=== PATIENT | male | born 1955 | race Caucasian/White ===

== ENCOUNTER 2018-04-04 09:19 | Day surgery (SDC) | payer BC ==
[2018-03-27 10:27] VITALS: BMI 26.4
[~2018-04-04 09:19] MED LIST: LACTATED RINGERS 1,000 ML IV SCH; LIDOCAINE 1% 20 ML VIAL (10MG/ML) FOR IV START INTRADERMA PRN; MIDAZOLAM 2 MG/2 ML VIAL IV PRN; MOXIFLOXACIN HCL 0.5% DROPS 3 ML BTL OP ONE; TETRACAINE 0.5% OPHTH (PF) DROPS 4 ML BTL OP ONE; TIMOLOL 0.5% OPHTH DROPS 5 ML BTL OP ONE
[2018-04-04] MEDS: CYCLOPENTOLATE 1% OPHTH SOLN 2 ML BTL OP ONE ×2 (11:12→11:22)
[2018-04-04] MEDS: PHENYLEPHRINE 2.5% OPHTH DRP 2ML OP NR ×3 (11:15→11:34)
[2018-04-04 11:28] VITALS: RESP 16; TEMP 97.6
[2018-04-04] MEDS ORDERED: fentaNYL (PF) 50 MCG/ML 2 ML AMP ONE (11:59)
[2018-04-04] MEDS ORDERED: MIDAZOLAM 2 MG/2 ML VIAL ONE (11:59)
[2018-04-04] MEDS ORDERED: EPINEPHrine (PF) 0.3 ML in BALANCED SALT IRRIG SOLN COMB2 500 ML IRRIGATION ONE (12:05)
[2018-04-04] MEDS ORDERED: HYALURONATE SODIUM INTRAOCULAR 1 EACH SYRINGE (12MG/ML) INTRAOCULA ONE (12:08)
[2018-04-04] MEDS ORDERED: BALANCED SALT IRRIG SOLN COMB2 15 ML IRRIG.SOLN IRRIGATION ONE (12:09)
[2018-04-04] MEDS ORDERED: LIDOCAINE 1% (PF) 10MG/ML VIAL MISCELLANE ONE (12:09)
--- NOTE | 2018-04-04 12:31 | P.OP ---
Date of Procedure: 04/04/18 Preoperative Diagnosis: NS & CS & PSC Postoperative Diagnosis: same Procedure(s) Performed: PIOL, OS Implants: PCB00 18.00 Anesthesia: MAC Surgeon: Raudel Carl Estimated Blood Loss (ml): 0 Pathology: none sent Condition: stable Disposition: same day Indications for Procedure: blurry vision Operative Findings: no complications
[2018-04-04 12:59] VITALS: BP 136/78; PULSE 54
--- NOTE | 2018-04-04 17:04 | OP ---
OPERATIVE REPORT DATE OF SURGERY: 04 April 2018 EVENT PLANNER:: PREOPERATIVE DIAGNOSES:: Nuclear sclerosis. Cortical sclerosis. Posterior subcapsular cataract. POSTOPERATIVE DIAGNOSES:: Nuclear sclerosis. Cortical sclerosis. Posterior subcapsular cataract. OPERATION:: Clear cornea phacoemulsification of cataract left OS eye. ESTIMATED BLOOD LOSS:: Zero. SPECIMEN TAKEN:: None. NARRATIVE:: After obtaining the appropriate consent, the patient was brought to the Operating Room where the patient was placed under cardiac monitoring and prepped and draped in the usual sterile manner. At the 5 o'clock position a 15 degree super sharp blade was used to create a paracentesis followed by instillation of 1% Xylocaine MPF 50:50 mix with BSS into the anterior chamber. This was followed by Amvisc to stabilize the anterior chamber. At the 3 o'clock position a self-sealing corneal flap incision was created using 2.8 mm matt keratome. A cystatome was used to initiate a continuous tear capsulorrhexis which was completed with the Utrata forceps. A Binkhorst cannula was used to hydrodissect the lens nucleus followed by hydrodelineation. Phacoemulsification of the lens was performed utilizing Phacochop in 3.54 Seconds at 9% power. The remaining cortical material was removed using the irrigation aspiration mode followed by additional 1% Xylocaine MPF into the anterior chamber followed by viscoelastic to stabilize the capsular bag. An MALGORZATA PZB 00 18.0 diopter posterior chamber lens was placed into the capsular bag without difficulty. The remaining viscoelastic material was removed from the anterior chamber with the irrigation/aspiration. Balanced salt solution was used to normalize the intraocular pressure. The incision was checked for watertight integrity. The patient then received two drops of 0.5% timolol followed by two drops Vigamox, was lightly patched and shielded in the usual manner. There were no complications from the procedure. The patient tolerated the procedure well and was returned to recovery in good condition. MMODL / IJN: [id number] /
== END 2018-04-04 13:36 | disposition home or self-care (01) ==
LOC: OR 09:19
PROVIDERS: ATTEND Ophthalmology
DX: H25.13 Age-related nuclear cataract, bilateral (principal); H25.013 Cortical age-related cataract, bilateral; H52.13 Myopia, bilateral; H52.202 Unspecified astigmatism, left eye; I10 Essential (primary) hypertension; Z88.0 Allergy status to penicillin; Z91.040 Latex allergy status
CPT/HCPCS: 66984; C1780; J2250; J0171; J3010; J2001

== ENCOUNTER 2018-04-25 08:27 | Day surgery (SDC) | payer BC ==
[2018-04-20 11:40] VITALS: BMI 27.1
[~2018-04-25 08:27] MED LIST changes: -LIDOCAINE 1% 20 ML VIAL (10MG/ML) FOR IV START INTRADERMA PRN; -MIDAZOLAM 2 MG/2 ML VIAL IV PRN
[2018-04-25 09:18] VITALS: RESP 16; TEMP 97.4
[2018-04-25] MEDS: PHENYLEPHRINE 2.5% OPHTH DRP 2ML OP NR ×3 (09:21→09:35)
[2018-04-25] MEDS ORDERED: LIDOCAINE 1% 20 ML VIAL (10MG/ML) FOR IV START INTRADERMA ONE (09:23)
[2018-04-25] MEDS: CYCLOPENTOLATE 1% OPHTH SOLN 2 ML BTL OP ONE ×3 (09:25→09:39)
[2018-04-25] MEDS ORDERED: BALANCED SALT IRRIG SOLN COMB2 15 ML IRRIG.SOLN IRRIGATION ONE (10:22)
[2018-04-25] MEDS ORDERED: HYALURONATE SODIUM INTRAOCULAR 1 EACH SYRINGE (12MG/ML) INTRAOCULA ONE (10:22)
[2018-04-25] MEDS ORDERED: LIDOCAINE 1% (PF) 10MG/ML VIAL SQ ONE (10:22)
[2018-04-25] MEDS ORDERED: fentaNYL (PF) 50 MCG/ML 2 ML AMP ONE (10:26)
[2018-04-25] MEDS ORDERED: MIDAZOLAM 2 MG/2 ML VIAL ONE (10:26)
[2018-04-25] MEDS ORDERED: CHONDROITIN-SOD HYALURONATE 1 EACH SYRINGE (0.75 ML) INTRAOCULA ONE (10:35)
[2018-04-25] MEDS ORDERED: EPINEPHrine (PF) 0.3 ML in BALANCED SALT IRRIG SOLN COMB2 500 ML IRRIGATION ONE (10:37)
--- NOTE | 2018-04-25 10:58 | P.OP ---
Date of Procedure: 04/25/18 Preoperative Diagnosis: IOL power mismatch Postoperative Diagnosis: same Procedure(s) Performed: IOL exchange OS Implants: PCB00 19.00 Anesthesia: MAC Surgeon: Raudel Carl Estimated Blood Loss (ml): 0 Pathology: none sent Condition: stable Disposition: same day Indications for Procedure: blurry vision Operative Findings: No complications
[2018-04-25 11:22] VITALS: BP 127/82; PULSE 53
--- NOTE | 2018-04-25 13:03 | OP ---
OPERATIVE REPORT Good afternoon this Dr. Carl dictating operation report Mr. Willi Palacios patient #[id number] date of surgery is 25 April 2018 procedure is intra-ocular lens exchange. PREOPERATIVE DIAGNOSIS: Mechanical complication of intra-ocular lens in its sequelae. POSTOPERATIVE DIAGNOSIS: Same. SURGEON: Dr. Raudel Carl. ANESTHESIA: Topical. ESTIMATED BLOOD LOSS: None. SPECIMEN: Taken none narrative after obtaining the appropriate consent, the patient was brought to the operating room there. He was placed on cardiac monitoring prepped and draped in the usual sterile manner. He was approached from his left temporal side and at the 5 o'clock position a 1.1 mm stab blade was used to open the existing paracentesis from the previous operation through this opening 1% Xylocaine MPF 50 50 mix of balanced salt solution was injected into the anterior chamber. This was followed by stabilization of the anterior chamber with Viscoat at the 3 o'clock position, a 2.8 mm keratome was used to open the existing temporal incision placed during the previous cataract operation using both balanced salt solution on a cannula as well as the viscoelastic. Access to the intra-ocular lens was made by releasing any attachments between the haptics and the capsular bag. The intra-ocular lens was then brought into the anterior chamber without significant difficulty and was cut in half with the lens dividing scissors. Each half of the intra-ocular lens which was being removed were brought through the temporal incision without further enlargement. A PCV 19.0 intra-ocular lens was then inserted back into the capsular bag without difficulty. The remaining viscoelastic from in and around the intra-ocular lens as well as the anterior chamber was vacuumed under irrigation aspiration. The eye was brought to normal intraocular pressure through the paracentesis port and the eye was confirmed to be watertight. He was noted at the end of the case. There was a small notch in the anterior capsule at the 9 o'clock position. However, the lens appeared to be in a good sound configuration and placement. The patient then received 2 drops of 0.5% timolol followed by 2 drops of Vigamox was then lightly patched and shielded in the usual manner. There were no other complications with the procedure. He tolerated the procedure well, and was returned to outpatient recovery in good condition. MMODL / IJN: [id number] /
== END 2018-04-25 11:33 | disposition home or self-care (01) ==
LOC: OR 08:27
PROVIDERS: ATTEND Ophthalmology
DX: T85.29XA Other mechanical complication of intraocular lens, initial encounter (principal); H25.11 Age-related nuclear cataract, right eye; H52.13 Myopia, bilateral; H52.203 Unspecified astigmatism, bilateral; Z96.1 Presence of intraocular lens; Z91.040 Latex allergy status; J45.909 Unspecified asthma, uncomplicated; Z88.0 Allergy status to penicillin; Z88.1 Allergy status to other antibiotic agents
CPT/HCPCS: 66986; C1780; J2250; J0171; J3010; J2001